=== PATIENT | female | born 1960 | race Caucasian/White ===

== ENCOUNTER 2017-05-16 18:35 | Emergency (ER) | payer OTHER ==
[~2017-05-16] VITALS: Ht 160 cm; Wt 59.0 kg
[~2017-05-16 18:35] MED LIST: ALBUTEROL2.5 MG/3 M IN; CHERATUSSIN OR; KETOROLAC60 MG/2 ML IJ; LORTAB 5/3255 MG PO; LOTRISONE CREAM15 GM EX; MEDDOSEPAK OR; MEDDOSEPAK PO; NAPROSYN500 MG PO; NAPROXEN500 MG PO; NO; PREDNISONE50 MG PO; PROVENTIL HFA IN; SILVADENE1 % EX; SOMA350 MG PO; TRAMADOL HCL50 MG PO; ULTRAM50 MG OR; ZITHROMAX250 MG PO; ZPAK PO
[2017-05-16 21:05] VITALS: BP 109/60
[2017-05-16] MEDS ORDERED: ULTRAM50 M1 PO (21:08)
== END 2017-05-16 21:05 | disposition home or self-care (01) | DRG 605 ==
LOC: ED 18:35
DX: S60.812A Abrasion of left wrist, initial encounter (principal); S20.212A Contusion of left front wall of thorax, initial encounter; F17.210 Nicotine dependence, cigarettes, uncomplicated; W17.89XA Other fall from one level to another, initial encounter

== ENCOUNTER 2018-03-06 15:54 | Emergency (ER) | payer OTHER ==
[~2018-03-06] VITALS: Ht 160 cm; Wt 52.0 kg
[~2018-03-06 15:54] MED LIST changes: +ULTRAM50 M1 PO
[2018-03-06 17:09] VITALS: BP 128/66
== END 2018-03-06 17:10 | disposition home or self-care (01) ==
LOC: ED 15:54
DX: S60.211A Contusion of right wrist, initial encounter (principal); F17.210 Nicotine dependence, cigarettes, uncomplicated; W01.0XXA Fall on same level from slipping, tripping and stumbling without subsequent striking against object, initial encounter; Y92.009 Unspecified place in unspecified non-institutional (private) residence as the place of occurrence of the external cause

== ENCOUNTER 2020-06-23 19:34 | Inpatient (IN) | payer MEDICAID ==
[~2020-06-23] VITALS: Ht 160 cm; Wt 52.0 kg
[2020-06-23 20:28] LABS: HEMATOCRIT 35.4 % (37.0-47.0); HEMOGLOBIN 12.2 g/dl (12.0-16.0); IMMATURE GRANULOCYTES 0.7 % (0.0-5.0); MEAN CELL VOLUME 91.9 fL CALC (80.0-100.0); MEAN CORPUSCULAR HGB 31.7 pG CALC (26.0-32.0); MEAN CORPUSCULAR HGB CONC 34.5 g/dL CAL (32.0-36.0); NEUT# 15.53 thou/uL (2.00-7.15); RED BLOOD COUNT 3.85 mill/uL (4.20-5.60); RED CELL DISTRI WIDTH 11.4 % (11.5-15.5)
[2020-06-23 21:10] LABS: ALBUMIN 3.3 g/dL (3.2-5.0); ALKALINE PHOSPHATASE 72 u/l (38-126); BUN 18 mg/dL (7-17); BUN/CREATININE RATIO 20 (12-20 (CALC)); CARBON DIOXIDE 26 mmol/l (22-30); CHLORIDE 97 mmol/l (95-108); CREATININE 0.9 mg/dL (0.5-1.0); GFR > 60 ML/MIN (>=60 (CALC)); GFR FOR AFR.AMER. > 60 ML/MIN (>=60 (CALC)); POTASSIUM 3.4 mmol/l (3.5-5.1); SGOT/AST 23 u/l (14-36); TOTAL PROTEIN 6.3 g/dL (6.3-8.2)
[2020-06-23 21:12] LABS: ANION GAP 8 (6-22 (CALC)); BILIRUBIN, TOTAL 0.7 mg/dL (0.0-1.4); SODIUM 128 mmol/l (137-146)
[2020-06-23 22:17] LABS: URINE BILIRUBIN - DIPSTICK NEGATIVE (NEGATIVE); URINE BLOOD DIPSTICK LARGE (NEGATIVE); URINE COLOR YELLOW; URINE GLUCOSE - DIPSTICK NEGATIVE (NEGATIVE); URINE KETONE NEGATIVE (NEGATIVE); URINE PROTEIN - DIPSTICK 100 mg/dL (NEG-TRACE); URINE UROBILINOGEN - DIPSTICK 0.2 E.U./dL (0.2)
[2020-06-23 22:19] LABS: URINE LEUK ESTERASE MODERATE (NEGATIVE); URINE NITRITE - DIPSTICK POSITIVE (Negative)
[2020-06-23 22:26] LABS: URINE BACTERIA FEW hpf; URINE SQUAMOUS EPITHELIAL CELL FEW EPI/hpf (0-FEW); URINE WBC 50-100 WBC/hpf (0-5)
[2020-06-24 06:00] VITALS: BP 84/32
[2020-06-24 06:24] LABS: HEMATOCRIT 34.2 % (37.0-47.0); HEMOGLOBIN 11.7 g/dl (12.0-16.0); IMMATURE GRANULOCYTES 1.1 % (0.0-5.0); MEAN CELL VOLUME 93.4 fL CALC (80.0-100.0); MEAN CORPUSCULAR HGB CONC 34.2 g/dL CAL (32.0-36.0); NEUT# 18.37 thou/uL (2.00-7.15); RED BLOOD COUNT 3.66 mill/uL (4.20-5.60); RED CELL DISTRI WIDTH 11.4 % (11.5-15.5)
[2020-06-24 06:35] LABS: ALBUMIN 3.1 g/dL (3.2-5.0); ALKALINE PHOSPHATASE 80 u/l (38-126); ANION GAP 8 (6-22 (CALC)); BILIRUBIN, TOTAL 0.8 mg/dL (0.0-1.4); BUN 17 mg/dL (7-17); BUN/CREATININE RATIO 20 (12-20 (CALC)); CARBON DIOXIDE 25 mmol/l (22-30); CHLORIDE 103 mmol/l (95-108); CREATININE 0.8 mg/dL (0.5-1.0); GFR > 60 ML/MIN (>=60 (CALC)); GFR FOR AFR.AMER. > 60 ML/MIN (>=60 (CALC)); POTASSIUM 3.6 mmol/l (3.5-5.1); SGOT/AST 23 u/l (14-36); SODIUM 133 mmol/l (137-146); TOTAL PROTEIN 5.9 g/dL (6.3-8.2)
[2020-06-24 07:25] VITALS: BP 88/45
[2020-06-24 09:30] VITALS: BP 80/46
[2020-06-24 10:30] VITALS: BP 83/42
[2020-06-24 15:00] VITALS: BP 81/54
[2020-06-24 19:00] VITALS: BP 77/49
[2020-06-25 04:00] VITALS: BP 82/54
[2020-06-25 05:25] LABS: HEMATOCRIT 30.3 % (37.0-47.0); HEMOGLOBIN 10.1 g/dl (12.0-16.0); MEAN CELL VOLUME 94.4 fL CALC (80.0-100.0); MEAN CORPUSCULAR HGB 31.5 pG CALC (26.0-32.0); MEAN CORPUSCULAR HGB CONC 33.3 g/dL CAL (32.0-36.0); RED BLOOD COUNT 3.21 mill/uL (4.20-5.60); RED CELL DISTRI WIDTH 11.8 % (11.5-15.5)
[2020-06-25 05:53] LABS: BUN 14 mg/dL (7-17); BUN/CREATININE RATIO 16 (12-20 (CALC)); CARBON DIOXIDE 22 mmol/l (22-30); CHLORIDE 105 mmol/l (95-108); CREATININE 0.8 mg/dL (0.5-1.0); GFR > 60 ML/MIN (>=60 (CALC)); GFR FOR AFR.AMER. > 60 ML/MIN (>=60 (CALC)); MAGNESIUM 1.8 mg/dL (1.6-2.3); SODIUM 132 mmol/l (137-146)
[2020-06-25 06:25] LABS: ANION GAP 8 (6-22 (CALC)); POTASSIUM 3.4 mmol/l (3.5-5.1)
[2020-06-25 07:30] VITALS: BP 77/51
[2020-06-25 15:05] VITALS: BP 80/44
[2020-06-25 19:00] VITALS: BP 89/55
[2020-06-26 04:00] VITALS: BP 94/58
[2020-06-26 05:48] LABS: HEMATOCRIT 28.4 % (37.0-47.0); HEMOGLOBIN 9.8 g/dl (12.0-16.0); IMMATURE GRANULOCYTES 0.4 % (0.0-5.0); MEAN CELL VOLUME 93.1 fL CALC (80.0-100.0); MEAN CORPUSCULAR HGB 32.1 pG CALC (26.0-32.0); MEAN CORPUSCULAR HGB CONC 34.5 g/dL CAL (32.0-36.0); NEUT# 10.43 thou/uL (2.00-7.15); RED BLOOD COUNT 3.05 mill/uL (4.20-5.60)
[2020-06-26 06:09] LABS: ALBUMIN 2.5 g/dL (3.2-5.0); ALKALINE PHOSPHATASE 82 u/l (38-126); BUN 9 mg/dL (7-17); BUN/CREATININE RATIO 13 (12-20 (CALC)); CARBON DIOXIDE 20 mmol/l (22-30); CHLORIDE 108 mmol/l (95-108); CREATININE 0.7 mg/dL (0.5-1.0); GFR > 60 ML/MIN (>=60 (CALC)); GFR FOR AFR.AMER. > 60 ML/MIN (>=60 (CALC)); SGOT/AST 21 u/l (14-36); SODIUM 134 mmol/l (137-146); TOTAL PROTEIN 4.9 g/dL (6.3-8.2)
[2020-06-26 06:11] LABS: ANION GAP 9 (6-22 (CALC)); POTASSIUM 3.1 mmol/l (3.5-5.1)
[2020-06-26 06:15] LABS: BILIRUBIN, TOTAL 0.4 mg/dL (0.0-1.4)
[2020-06-26 07:35] VITALS: BP 95/63
[2020-06-26 15:55] VITALS: BP 103/54
[2020-06-26 19:00] VITALS: BP 86/51
[2020-06-27 04:00] VITALS: BP 91/58
[2020-06-27 05:47] LABS: HEMOGLOBIN 10.9 g/dl (12.0-16.0); IMMATURE GRANULOCYTES 0.4 % (0.0-5.0); MEAN CELL VOLUME 94.3 fL CALC (80.0-100.0); MEAN CORPUSCULAR HGB 31.1 pG CALC (26.0-32.0); NEUT# 7.8 thou/uL (2.00-7.15); RED BLOOD COUNT 3.5 mill/uL (4.20-5.60); RED CELL DISTRI WIDTH 12.6 % (11.5-15.5)
[2020-06-27 05:58] LABS: ALBUMIN 2.6 g/dL (3.2-5.0); ALKALINE PHOSPHATASE 97 u/l (38-126); ANION GAP 9 (6-22 (CALC)); BILIRUBIN, TOTAL 0.5 mg/dL (0.0-1.4); BUN 5 mg/dL (7-17); BUN/CREATININE RATIO 8 (12-20 (CALC)); CARBON DIOXIDE 24 mmol/l (22-30); CHLORIDE 108 mmol/l (95-108); CREATININE 0.6 mg/dL (0.5-1.0); GFR > 60 ML/MIN (>=60 (CALC)); GFR FOR AFR.AMER. > 60 ML/MIN (>=60 (CALC)); POTASSIUM 3.2 mmol/l (3.5-5.1); SODIUM 138 mmol/l (137-146); TOTAL PROTEIN 5.1 g/dL (6.3-8.2)
[2020-06-27 06:01] LABS: SGOT/AST 37 u/l (14-36)
[2020-06-27 07:57] VITALS: BP 92/53
[2020-06-27 15:10] VITALS: BP 87/56
[2020-06-27 19:00] VITALS: BP 81/34
[2020-06-28 04:00] VITALS: BP 93/55
[2020-06-28 05:33] LABS: HEMATOCRIT 28.1 % (37.0-47.0); HEMOGLOBIN 9.3 g/dl (12.0-16.0); IMMATURE GRANULOCYTES 0.4 % (0.0-5.0); MEAN CELL VOLUME 94.9 fL CALC (80.0-100.0); MEAN CORPUSCULAR HGB 31.4 pG CALC (26.0-32.0); MEAN CORPUSCULAR HGB CONC 33.1 g/dL CAL (32.0-36.0); NEUT# 4.01 thou/uL (2.00-7.15); RED BLOOD COUNT 2.96 mill/uL (4.20-5.60); RED CELL DISTRI WIDTH 12.6 % (11.5-15.5)
[2020-06-28 05:42] LABS: ALBUMIN 2.6 g/dL (3.2-5.0); ALKALINE PHOSPHATASE 89 u/l (38-126); ANION GAP 8 (6-22 (CALC)); BILIRUBIN, TOTAL 0.5 mg/dL (0.0-1.4); BUN 4 mg/dL (7-17); BUN/CREATININE RATIO 7 (12-20 (CALC)); CARBON DIOXIDE 27 mmol/l (22-30); CHLORIDE 106 mmol/l (95-108); CREATININE 0.6 mg/dL (0.5-1.0); GFR > 60 ML/MIN (>=60 (CALC)); GFR FOR AFR.AMER. > 60 ML/MIN (>=60 (CALC)); POTASSIUM 3.4 mmol/l (3.5-5.1); SODIUM 137 mmol/l (137-146)
[2020-06-28 05:47] LABS: SGOT/AST 116 u/l (14-36)
[2020-06-28 08:24] VITALS: BP 95/50
[2020-06-28 15:00] VITALS: BP 81/53
== END 2020-06-28 15:30 | DRG 872 ==
LOC: ED 19:34 → ED-I 20:55 → ED 20:55 → ED-I 06-24 02:43 → ED 06-24 03:39 → MS2 06-24 03:40
PROVIDERS: Emergency Medicine; Nurse Practitioner; ADMIT Internal Medicine; ATTEND Internal Medicine
DX: A41.9 Sepsis, unspecified organism (principal); K81.0 Acute cholecystitis; Z16.11 Resistance to penicillins; N30.90 Cystitis, unspecified without hematuria; B96.20 Unspecified Escherichia coli [E. coli] as the cause of diseases classified elsewhere; R00.8 Other abnormalities of heart beat; J44.9 Chronic obstructive pulmonary disease, unspecified; Z20.822 Contact with and (suspected) exposure to COVID-19; F17.210 Nicotine dependence, cigarettes, uncomplicated; Z98.1 Arthrodesis status
CPT/HCPCS: J1650; Q9967

== ENCOUNTER 2022-04-15 19:46 | Inpatient (IN) | payer MEDICAID ==
[~2022-04-15] VITALS: Ht 160 cm; Wt 42.7 kg
--- NOTE | 2022-04-15 19:46 | NUR ---
PT TO ROOM 13 VIA EMS FOR TRIAGE.
[2022-04-15 20:07] VITALS: BP 101/72
[2022-04-15 20:09] LABS: IMMATURE GRANULOCYTES 0.4 % (0.0-5.0); MEAN CELL VOLUME 97.1 fL CALC (80.0-100.0); MEAN CORPUSCULAR HGB 33.3 pG CALC (26.0-32.0); MEAN CORPUSCULAR HGB CONC 34.3 g/dL CAL (32.0-36.0); NEUT# 10.31 thou/uL (2.00-7.15); RED BLOOD COUNT 4.17 mill/uL (4.20-5.60); RED CELL DISTRI WIDTH 12.3 % (11.5-15.5)
[2022-04-15 20:10] LABS: HEMATOCRIT 40.5 % (37.0-47.0); HEMOGLOBIN 13.9 g/dl (12.0-16.0)
[2022-04-15 20:20] LABS: ALKALINE PHOSPHATASE 70 u/l (38-126); BUN 18 mg/dL (7-17); BUN/CREATININE RATIO 26 (12-20 (CALC)); CARBON DIOXIDE 28 mmol/l (22-30); CHLORIDE 100 mmol/l (95-108); CREATININE 0.7 mg/dL (0.5-1.0); GFR FOR AFR.AMER. > 60 ML/MIN (>=60 (CALC)); GFR OTHER RACES > 60 ML/MIN (>=60 (CALC)); MAGNESIUM 2.1 mg/dL (1.6-2.3); SGOT/AST 29 u/l (14-36); SODIUM 137 mmol/l (137-146)
[2022-04-15 20:22] LABS: ANION GAP 13 (6-22 (CALC)); BILIRUBIN, TOTAL 0.2 mg/dL (0.0-1.4); POTASSIUM 4.1 mmol/l (3.5-5.1)
[2022-04-15 20:32] LABS: MYOGLOBIN 79 ng/mL (0 - 62)
[2022-04-15 21:00] VITALS: BP 128/78
[2022-04-15 22:00] VITALS: BP 102/57
[2022-04-15] MEDS ORDERED: PROAIR HFA IN (22:02)
[2022-04-15] MEDS ORDERED: SYMBICORT 80-4.5MCG (22:02)
[2022-04-15 23:50] VITALS: BP 117/54
[2022-04-16] VITALS (7 sets, daily range): BP systolic 97–120; BP diastolic 51–63
--- NOTE | 2022-04-16 01:00 | NUR ---
PATIENT ADMITTED FROM ER VIA WHEELCHAIR WITH O2 VIA NASAL CANNULA IN PLACE AT 2LPM WITH ER STAFF IN ATTENDANCE. PATIENT IS AWAKE ALERT AND ORIENTEDX3 AND SOB EVEN TALKING. ADMITTED FOR COPD EXACERBATION. PATIENT MIN ASSIST TO THE BED. ALERT AND ORIENTEDX3. O2 AT 2LPM. TELE MONITOR IN PLACE AND READING SR-60-70'S. IV SITE TO LACINTACT AND HEALTHY WITH GOOD BLOOD RETURN. IVF NS HUNG AND INFUSING AT 50CC/HR ORDERED. PATIENT WITH WHEEZING INSPIRATORY AND EXPIRATORY THROUGHOUT. STATES THAT SHE DOES HAVE OCC PRODUCTIVE COUGH WITH YELLOW SPUTUM. ABD IS SOFT WITH ACTIVE BS. LAST BM WAS YESTERDAY. DENIES ANY DIFF WITH URINATION. NO PERIPHERAL EDEMA. PULSES ARE PALPABLE. PATIENT PROVIDED WITH FRUIT AND DRINK. ORIENTED TO ROOM AND SURROUNDINGS. INSTRUCTED ON USE OF NURSE CALL LIGHT SYSTEM AND TV REMOTE. SAFETY PRECAUTIONS REINFORCED. CALL LIGHT IN REACH. WILL CONT TO MONITOR.
--- NOTE | 2022-04-16 03:51 | NUR ---
PATIENT RESTING IN BED IN HIGH FOWLERS POSITION WITH O2 IN PLACE AND EYES CLOSED. RESP ARE LESS LABORED AT THIS TIME. TELE MONITOR IN PLACE. IVF NS PATENT AND INFUSING VIA LAC SITE AT 50CC/HR. CALL LIGHT IN REACH. WILL CONT TO MONITOR.
[2022-04-16 05:37] LABS: HEMATOCRIT 39.2 % (37.0-47.0); HEMOGLOBIN 13.4 g/dl (12.0-16.0); IMMATURE GRANULOCYTES 0.4 % (0.0-5.0); MEAN CELL VOLUME 97.8 fL CALC (80.0-100.0); MEAN CORPUSCULAR HGB 33.4 pG CALC (26.0-32.0); MEAN CORPUSCULAR HGB CONC 34.2 g/dL CAL (32.0-36.0); NEUT# 9.84 thou/uL (2.00-7.15); RED BLOOD COUNT 4.01 mill/uL (4.20-5.60); RED CELL DISTRI WIDTH 12.3 % (11.5-15.5)
[2022-04-16 05:38] LABS: ALBUMIN 3.8 g/dL (3.2-5.0); ALKALINE PHOSPHATASE 71 u/l (38-126); ANION GAP 13 (6-22 (CALC)); BUN 21 mg/dL (7-17); BUN/CREATININE RATIO 37 (12-20 (CALC)); CARBON DIOXIDE 26 mmol/l (22-30); CHLORIDE 101 mmol/l (95-108); CREATININE 0.6 mg/dL (0.5-1.0); GFR FOR AFR.AMER. > 60 ML/MIN (>=60 (CALC)); GFR OTHER RACES > 60 ML/MIN (>=60 (CALC)); MAGNESIUM 2.5 mg/dL (1.6-2.3); POTASSIUM 4.4 mmol/l (3.5-5.1); SGOT/AST 27 u/l (14-36); SODIUM 136 mmol/l (137-146); TOTAL PROTEIN 6.1 g/dL (6.3-8.2)
[2022-04-16 05:45] LABS: BILIRUBIN, TOTAL 0.1 mg/dL (0.0-1.4)
--- NOTE | 2022-04-16 10:19 | NUR ---
pt to m/s from ICU, she is AO, lungs clear, BS active, slight swelling to L lower leg with tenderness, 20 ga IV to RAC, A-fib with BBB
[2022-04-16 15:01] LABS: URINE BILIRUBIN - DIPSTICK NEGATIVE (NEGATIVE); URINE BLOOD DIPSTICK NEGATIVE (NEGATIVE); URINE COLOR YELLOW; URINE GLUCOSE - DIPSTICK NEGATIVE (NEGATIVE); URINE KETONE NEGATIVE (NEGATIVE); URINE LEUK ESTERASE NEGATIVE (NEGATIVE); URINE NITRITE - DIPSTICK NEGATIVE (Negative); URINE PROTEIN - DIPSTICK NEGATIVE (NEG-TRACE); URINE SPECIFIC GRAVITY 1.015; URINE UROBILINOGEN - DIPSTICK 0.2 E.U./dL (0.2)
[2022-04-17] VITALS (7 sets, daily range): BP systolic 100–121; BP diastolic 47–62
--- NOTE | 2022-04-17 04:15 | NUR ---
patient resting in bed. denies any pain or discomfort. no s/s of distress noted.
[2022-04-17 05:41] LABS: HEMATOCRIT 38.9 % (37.0-47.0); HEMOGLOBIN 13.3 g/dl (12.0-16.0); IMMATURE GRANULOCYTES 0.6 % (0.0-5.0); MEAN CELL VOLUME 98.5 fL CALC (80.0-100.0); MEAN CORPUSCULAR HGB 33.7 pG CALC (26.0-32.0); MEAN CORPUSCULAR HGB CONC 34.2 g/dL CAL (32.0-36.0); NEUT# 13.28 thou/uL (2.00-7.15); RED BLOOD COUNT 3.95 mill/uL (4.20-5.60); RED CELL DISTRI WIDTH 12.5 % (11.5-15.5)
[2022-04-17 06:03] LABS: ANION GAP 11 (6-22 (CALC)); BUN 21 mg/dL (7-17); BUN/CREATININE RATIO 36 (12-20 (CALC)); CARBON DIOXIDE 27 mmol/l (22-30); CHLORIDE 103 mmol/l (95-108); CREATININE 0.6 mg/dL (0.5-1.0); GFR FOR AFR.AMER. > 60 ML/MIN (>=60 (CALC)); GFR OTHER RACES > 60 ML/MIN (>=60 (CALC)); MAGNESIUM 2.3 mg/dL (1.6-2.3); POTASSIUM 4.2 mmol/l (3.5-5.1); SODIUM 136 mmol/l (137-146)
--- NOTE | 2022-04-17 07:39 | NUR ---
PT RESTING IN HIGH FOWLERS POSITION. A/OX3 ASSESSMENT AND VS COMPLETED. HEART RHYTHM ON TELE. RESPIRATIONS ON 3L OF OXYGEN BOWEL SOUNDS ACTIVE. PT DENIES WOUNDS . IV SITE NOTED. S.L PT DENIES ADDITIONAL NEEDS ALL SAFETY PRECAUTIONS IN PLACE.
--- NOTE | 2022-04-17 15:11 | NUR ---
PT RESTING IN HIGH FOWLERS POSITION. PT TOLERATED BOTH VACCINESS WELL. PT DENIES ADDITIONAL NEEDS AT THE TIME .
--- NOTE | 2022-04-17 16:08 | NUR ---
PT DENIES ADDITIONAL NEEDS AT THE TIME.
--- NOTE | 2022-04-17 20:30 | NUR ---
PT ALERT, ORIENTED, ABLE TO MAKE NEEDS KNOWN. HR, RRR,PT DENIES PAIN,CHEST PAIN, PRESSURE. LS DIMINISHED WITH EXPIRATORY WHEEZES, PT STATES SOB WITH EXERTION,PT ON 3L O2, NC. ABD SOFT, NONTENDER, BT PRESENT. PT DENIES NAUSEA. PT ABLE TO MOVE ALL EXTREMITIES. BSC PLACED ATBEDSIDE.PT DECLINES TO USE BSC AT THIS TIME. PT STATES, ' I HAVE THREE KIDNEYS, I DO NOT USE THE BATHROOM TOO MUCH. PT DENIES PAIN. PT RESTING IN NO SIGN OF DISCOMFORT, WILL CONTINUE TO MONITOR.
[2022-04-18] VITALS (8 sets, daily range): BP systolic 100–113; BP diastolic 53–67
[2022-04-18 04:55] LABS: HEMATOCRIT 40.8 % (37.0-47.0); HEMOGLOBIN 13.9 g/dl (12.0-16.0); MEAN CELL VOLUME 97.8 fL CALC (80.0-100.0); MEAN CORPUSCULAR HGB 33.3 pG CALC (26.0-32.0); MEAN CORPUSCULAR HGB CONC 34.1 g/dL CAL (32.0-36.0); RED BLOOD COUNT 4.17 mill/uL (4.20-5.60); RED CELL DISTRI WIDTH 12.1 % (11.5-15.5)
[2022-04-18 05:18] LABS: ANION GAP 9 (6-22 (CALC)); BUN 24 mg/dL (7-17); BUN/CREATININE RATIO 47 (12-20 (CALC)); CARBON DIOXIDE 29 mmol/l (22-30); CHLORIDE 100 mmol/l (95-108); CREATININE 0.5 mg/dL (0.5-1.0); GFR FOR AFR.AMER. > 60 ML/MIN (>=60 (CALC)); GFR OTHER RACES > 60 ML/MIN (>=60 (CALC)); MAGNESIUM 2.2 mg/dL (1.6-2.3); POTASSIUM 4.1 mmol/l (3.5-5.1); SODIUM 134 mmol/l (137-146)
--- NOTE | 2022-04-18 07:42 | NUR ---
PT RESTING IN HIGH FOWLERS POSITION. ASSESSMENT COMPLETED. PT ON OXYGEN.HEART RHYTHM ON TELE. PT IV SITE TO LEFT WRIST FORE ARM AREA. 22G. S.L ALL SAFETY PRECAUTIONS IN PLACE WITH CALL LIGHT IN REACH.
--- NOTE | 2022-04-18 12:06 | NUR ---
PT RESTING IN HIGH FOWLERS POSITION. IV DRESSING CHANGED.
--- NOTE | 2022-04-18 15:54 | NUR ---
PT RESTING IN HIGH FOWLERS POSITION DENIES ADDITIONAL NEEDS AT THE TIME.
--- NOTE | 2022-04-18 20:00 | NUR ---
PATIENT IS SITTING UP IN BED WITH O2 VIA NASAL CANNULA IN PLACE. O2 SAT IS 94% AT THIS TIME. ALERT AND ORIENTEDX3. STATES THAT SHE IS NOT FEELING TOO MUCH BETTER. STILL SOB WITH LITTLE OR NO EXHERSION. STILL WITH DIMINISHED BS AND CONT TO WHEEZE. NON-PRODUCTIVE COUGH. INSTRUCTED THAT WE DO NEED SPUTUM SPEC IF SHE IS ABLE TO PROVIDE. SPEC CONTAINER LEFT AT BEDSIDE. STILL RECEIVING NEB TREATMENTS. IV SITE TO LEFT WRIST INTACT. STATES THAT SHE DID HAVE NORMAL BM TODAY. DENIES ANY DIFFICULTY WITH URINATION. NO PERIPHERAL EDEMA NOTED. PULSES ARE PALPABLED. SAFETY PRECAUTIONS REINFORCED. CALL LIGHT IN REACH. WILL CONT TO MONITOR.
[2022-04-19] VITALS (8 sets, daily range): BP systolic 92–124; BP diastolic 50–72
--- NOTE | 2022-04-19 | NUR ---
PATIENT RESTING IN BED WATCHING TV-MEDICATED WITH SOLU-MEDROL ORDERED VIA LEFT WRIST IV SITE. O2 VIA NASAL CANNULA AT 2LPM. CALL LIGHT IN REACH. WILL CONT TO MONITOR.
--- NOTE | 2022-04-19 04:00 | NUR ---
PATIENT RESTING IN BED WITH O2 VIA NASAL CANNULA IN PLACE. EYES ARE CLOSED AND RESP ARE EVEN AND UNLABORED AT THIS TIME. TELE MONITOR IN PLACE AND READING SR-61 AT THIS TIME. CALL LIGHT IN REACH. WILL CONT TO MONITOR.
--- NOTE | 2022-04-19 07:42 | NUR ---
PT RESTING IN HIGH FOWLERS POSITION. A/OX3 ASSESSMENT COMPLETED. HEART RHYTHM ON TELE. RESPIRATIONS UNLABORED ON OXYGEN . PT STATES WHEN MOVING FEELS SOB. FEELS OKAY NOW. IV SITE NOTED. RW AREA S.L PT DENIES ADDITIONAL NEEDS AT THE TIME ALL SAFETY PRECAUTIONS IN PLACE.
--- NOTE | 2022-04-19 12:41 | NUR ---
PT RESTING IN HIGH FOWLERS POSITION DENIES ADDTIIONAL NEEDS AT THE TIME.
--- NOTE | 2022-04-19 16:54 | NUR ---
PT RESTING IN HIGH FOWLERS POSITION. PT DENIES ANY IRRITATION WITH IV. PT DENIES ANY NEED FOR CHANGE. STATES FEELING BETTER.
--- NOTE | 2022-04-19 20:00 | NUR ---
PATIENT SITTING UP IN BED WITH O2 VIA NASAL CANNULA AT 2LPM IN PLACE. O2 SAT IS 96% AT THIS TIME. AWAKE ALERT AND ORIENTEDX3, FAMILY AT BEDSIDE VISITING. PATIENT IS TALKING IN FULL SENTENCES-LESS SOB NOTED. ONLY SLIGHT WHEEZE IN BASES NOTED. TELE MONINITOR IN PLACE-LAST READING WAS SR-80'S. SALINE LOCK TO LEFT WRIST INTACT. SAFETY PRECAUTIONS REINFORCED. CALL LIGHT IN REACH. WILL CONT TO MONITOR.
--- NOTE | 2022-04-20 00:12 | NUR ---
RESTING IN BED WITH O2 VIA NASAL CANNULA IN PLACE. EYES ARE CLOSED AND RESPS ARE EVEN AND UNLABORED. TELE MONITOR IN PLACE. CALL LIGHT IN REACH. WILL CONT TO MONITOR.
--- NOTE | 2022-04-20 04:19 | NUR ---
PATIENT RESTING IN BED WITH EYES CLOSED. RESPS ARE EVEN AND UNLABORED WITH O2 VIA NASAL CANNULA IN PLACE. TELE MONITOR IN PLACE WITH LAST READIN SR-60'S. CALL LIGHT IN REACH. WILL CONT TO MONITOR.
[2022-04-20 04:54] VITALS: BP 116/57
[2022-04-20 06:41] VITALS: BP 116/57
--- NOTE | 2022-04-20 07:45 | NUR ---
BEDSIDE REPORT GIVEN, PT AWAKE ALERT AND ORIENTED, NO C/O DISCOMFORT AT THIS TIME, STATES SHE FEELS BETTER TODAY, O2 @ 2L VIA NC IN PLACE, TELE MONITOR IN PLACE, CALL FRANKS IN REACH AND BED LOCKED IN LOWEST POSITION.
--- NOTE | 2022-04-20 12:43 | NUR ---
RELAXING IN RECLINER AFTER HAVING MEAL, NO NEW COMPLAINS.
[2022-04-20 15:05] VITALS: BP 91/52
[2022-04-20 19:06] VITALS: BP 118/59
--- NOTE | 2022-04-20 20:00 | NUR ---
RECEIVED REPORT FROM NURSE DARLINE, PATIENT SITTING IN BED, FAMILY IN ROOM, PATIENT ON 3LPM O2 VIA NC, EXERTIONAL DYSPNEA NOTED, PURSE LIP BREATHING, HAS G 20 ON LT WRIST PATENT FLUSHES WELL, HOOKED ON TELEMETRY, ACTIVE BOWEL SOUNDS, LBM 04/20, DENIES PAIN AT THIS TIME, CALL LIGHT IN REACH.
[2022-04-21 00:03] VITALS: BP 123/69
--- NOTE | 2022-04-21 00:52 | NUR ---
PATIENT RESTING IN BED, EYES CLOSED, REMAINS ON O2 @ 3LPM VIA BC, CALL LIGHT IN REACH.
[2022-04-21 04:04] VITALS: BP 120/52
--- NOTE | 2022-04-21 04:30 | NUR ---
PATIENT SITTING IN BED,AWAKE, WATCHING TV, NOT IN DISTRESS, TELE BATERRY REPLACE, DENIES DISCMORTS AT THIS TIME, CALL LIGHT IN REACH.
[2022-04-21 06:21] VITALS: BP 124/70
--- NOTE | 2022-04-21 07:02 | NUR ---
BEDSIDE REPORT FROM LINDY BLOCK. PT A&OX4. NO APPARENT DISTRESS NOTED, RESPIRATIONS EVEN AND UNLABORED. 02 @ 3L/M VIA NC. PT DENIES ANY CURRENT WANTS OR NEEDS. DISCUSSED POC AND SAFETY PRECAUTIONS. PT VERBALIZED UNDERSTANDING. CALL LIGHT WITHIN REACH. WILL CONTINUE TO MONITOR.
--- NOTE | 2022-04-21 10:22 | NUR ---
DR. JUNG AT BEDSIDE.
[2022-04-21] MEDS ORDERED: PREDNISONE10 MG PO (10:26)
[2022-04-21 10:31] VITALS: BP 111/59
--- NOTE | 2022-04-21 10:53 | NUR ---
PT REMOVED OFF O2 PER DR. JUNG VERBAL ORDERS. AT REST O2 SAT DROPPED FROM 96% ON 3L/M VIA NC TO 92% ON RA AT REST. WHILE AMBULATING DOWN JAMA WITH WALKER PT SAT DROPPED TO 88% ON RA AND PT BECAME EXTREMELY SOB. PT ESCORTED BACK TO ROOM SAFELY, O2 REAPPLIED 2L/M VIA NC, PT RECOVERED QUICKLY TO 92%. CALL LIGHT WITHIN REACH. WILL CONTINUE TO MONITOR.
--- NOTE | 2022-04-21 12:22 | NUR ---
IV site discontinued, cath intact. No edema , no redness, voices no discomfort.
--- NOTE | 2022-04-21 12:31 | NUR ---
Discharge instructions given. Patient verbalizes understanding of same. Discharged in stable condition via Wheelchair to Home with spouse. All belongings sent with pt.
== END 2022-04-21 12:31 | disposition home or self-care (01) | DRG 190 ==
LOC: ED 19:46 → ED-I 19:59 → ED 19:59 → ED-I 20:59 → ED 21:08 → MS2 21:09
PROVIDERS: Family Medicine; Nurse Practitioner; ADMIT Internal Medicine; ATTEND Internal Medicine
PROC: 3E0234Z Introduction of Serum, Toxoid and Vaccine into Muscle, Percutaneous Approach (ICD-10-PCS; principal; 2022-04-17)
PROC: 3E02340 Introduction of Influenza Vaccine into Muscle, Percutaneous Approach (ICD-10-PCS; 2022-04-17)
DX: J43.9 Emphysema, unspecified (principal); J96.01 Acute respiratory failure with hypoxia; E83.42 Hypomagnesemia; F06.4 Anxiety disorder due to known physiological condition; F17.210 Nicotine dependence, cigarettes, uncomplicated; Z23 Encounter for immunization; Z20.822 Contact with and (suspected) exposure to COVID-19
CPT/HCPCS: J1650; J3475; Q9967

== ENCOUNTER 2023-02-17 19:55 | Inpatient (IN) | payer MEDICAID ==
[2023-02-17] VITALS (35 sets, daily range): BP systolic 76–146; BP diastolic 43–110
[~2023-02-17] VITALS: Ht 160 cm; Wt 42.0 kg
[~2023-02-17 19:55] MED LIST changes: +PREDNISONE10 MG PO; +PROAIR HFA IN; +SYMBICORT 80-4.5MCG
[2023-02-17 20:59] LABS: BASO% 0.1 % (0-3); EOS% 0.9 % (0-8); HEMATOCRIT 36.3 % (37.0-47.0); HEMOGLOBIN 12.5 g/dl (12.0-16.0); IMMATURE GRANULOCYTES 0.6 % (0.0-5.0); LYMPH% 9.9 % (15-41); MEAN CELL VOLUME 93.6 fL CALC (80.0-100.0); MEAN CORPUSCULAR HGB 32.2 pG CALC (26.0-32.0); MEAN CORPUSCULAR HGB CONC 34.4 g/dL CAL (32.0-36.0); MONO% 8.1 % (2-13); NEUT# 8.72 thou/uL (2.00-7.15); NEUT% 80.4 % (42-76); RED BLOOD COUNT 3.88 mill/uL (4.20-5.60); RED CELL DISTRI WIDTH 12.9 % (11.5-15.5)
[2023-02-17 21:11] LABS: ALBUMIN 4.1 g/dL (3.2-5.0); ALKALINE PHOSPHATASE 82 u/l (38-126); ANION GAP 8 (6-22 (CALC)); BUN 10 mg/dL (8-23); BUN/CREATININE RATIO 23 (12-20 (CALC)); CARBON DIOXIDE 26 mmol/l (22-30); CHLORIDE 100 mmol/l (95-108); CREATININE 0.4 mg/dL (0.5-1.0); GFR FOR AFR.AMER. > 60 ML/MIN (>=60 (CALC)); GFR OTHER RACES > 60 ML/MIN (>=60 (CALC)); POTASSIUM 3.7 mmol/l (3.5-5.1); SGOT/AST 31 u/l (9-36); SODIUM 130 mmol/l (137-146); TOTAL PROTEIN 7.2 g/dL (6.3-8.2)
[2023-02-17 21:15] LABS: BILIRUBIN, TOTAL 0.5 mg/dL (0.02-1.3)
[2023-02-18] VITALS (25 sets, daily range): BP systolic 82–106; BP diastolic 42–64
[2023-02-18 08:50] LABS: HEMATOCRIT 34.9 % (37.0-47.0); HEMOGLOBIN 12.1 g/dl (12.0-16.0); IMMATURE GRANULOCYTES 0.2 % (0.0-5.0); LYMPH% 6.6 % (15-41); MEAN CELL VOLUME 94.6 fL CALC (80.0-100.0); MEAN CORPUSCULAR HGB 32.8 pG CALC (26.0-32.0); MEAN CORPUSCULAR HGB CONC 34.7 g/dL CAL (32.0-36.0); MONO% 2.3 % (2-13); NEUT# 5.22 thou/uL (2.00-7.15); NEUT% 90.9 % (42-76); RED BLOOD COUNT 3.69 mill/uL (4.20-5.60); RED CELL DISTRI WIDTH 12.8 % (11.5-15.5)
[2023-02-18 09:09] LABS: ALBUMIN 3.3 g/dL (3.2-5.0); ALKALINE PHOSPHATASE 76 u/l (38-126); ANION GAP 10 (6-22 (CALC)); BUN 18 mg/dL (8-23); BUN/CREATININE RATIO 40 (12-20 (CALC)); CARBON DIOXIDE 22 mmol/l (22-30); CHLORIDE 104 mmol/l (95-108); CREATININE 0.4 mg/dL (0.5-1.0); GFR FOR AFR.AMER. > 60 ML/MIN (>=60 (CALC)); GFR OTHER RACES > 60 ML/MIN (>=60 (CALC)); MAGNESIUM 2.1 mg/dL (1.6-2.3); POTASSIUM 3.9 mmol/l (3.5-5.1); SGOT/AST 27 u/l (9-36); SODIUM 132 mmol/l (137-146); TOTAL PROTEIN 6.1 g/dL (6.3-8.2)
[2023-02-18 09:18] LABS: BILIRUBIN, TOTAL 0.2 mg/dL (0.02-1.3)
[2023-02-18] MEDS ORDERED: SYMBICORT1 AE1 PO (09:44)
[2023-02-19 00:37] VITALS: BP 100/65
[2023-02-19 05:07] VITALS: BP 92/52
[2023-02-19 05:18] LABS: BASO% 0.1 % (0-3); HEMATOCRIT 34.4 % (37.0-47.0); HEMOGLOBIN 11.4 g/dl (12.0-16.0); IMMATURE GRANULOCYTES 0.9 % (0.0-5.0); LYMPH% 5.4 % (15-41); MEAN CELL VOLUME 96.9 fL CALC (80.0-100.0); MEAN CORPUSCULAR HGB 32.1 pG CALC (26.0-32.0); MEAN CORPUSCULAR HGB CONC 33.1 g/dL CAL (32.0-36.0); MONO% 2.7 % (2-13); NEUT# 9.71 thou/uL (2.00-7.15); NEUT% 90.9 % (42-76); RED BLOOD COUNT 3.55 mill/uL (4.20-5.60)
[2023-02-19 05:40] LABS: ALBUMIN 3.4 g/dL (3.2-5.0); ALKALINE PHOSPHATASE 75 u/l (38-126); ANION GAP 8 (6-22 (CALC)); BILIRUBIN, TOTAL 0.2 mg/dL (0.02-1.3); BUN 11 mg/dL (8-23); BUN/CREATININE RATIO 24 (12-20 (CALC)); CARBON DIOXIDE 25 mmol/l (22-30); CHLORIDE 107 mmol/l (95-108); CREATININE 0.4 mg/dL (0.5-1.0); GFR FOR AFR.AMER. > 60 ML/MIN (>=60 (CALC)); GFR OTHER RACES > 60 ML/MIN (>=60 (CALC)); MAGNESIUM 2.1 mg/dL (1.6-2.3); POTASSIUM 3.9 mmol/l (3.5-5.1); SGOT/AST 40 u/l (9-36); SODIUM 136 mmol/l (137-146); TOTAL PROTEIN 6.4 g/dL (6.3-8.2)
[2023-02-19 06:40] VITALS: BP 96/45
[2023-02-19 10:35] VITALS: BP 115/58
[2023-02-19 14:45] VITALS: BP 97/45
[2023-02-19 19:50] VITALS: BP 106/41
[2023-02-20 00:19] VITALS: BP 101/50
[2023-02-20 04:30] VITALS: BP 108/60
[2023-02-20 05:20] LABS: BASO% 0.1 % (0-3); HEMATOCRIT 33.5 % (37.0-47.0); HEMOGLOBIN 11.3 g/dl (12.0-16.0); IMMATURE GRANULOCYTES 0.3 % (0.0-5.0); LYMPH% 5.2 % (15-41); MEAN CELL VOLUME 98.5 fL CALC (80.0-100.0); MEAN CORPUSCULAR HGB 33.2 pG CALC (26.0-32.0); MEAN CORPUSCULAR HGB CONC 33.7 g/dL CAL (32.0-36.0); MONO% 2.3 % (2-13); NEUT# 10.2 thou/uL (2.00-7.15); NEUT% 92.1 % (42-76); RED BLOOD COUNT 3.4 mill/uL (4.20-5.60); RED CELL DISTRI WIDTH 13.2 % (11.5-15.5)
[2023-02-20 05:38] LABS: ALKALINE PHOSPHATASE 65 u/l (38-126); ANION GAP 7 (6-22 (CALC)); BILIRUBIN, TOTAL 0.2 mg/dL (0.02-1.3); BUN 16 mg/dL (8-23); BUN/CREATININE RATIO 32 (12-20 (CALC)); CARBON DIOXIDE 27 mmol/l (22-30); CHLORIDE 107 mmol/l (95-108); CREATININE 0.5 mg/dL (0.5-1.0); GFR FOR AFR.AMER. > 60 ML/MIN (>=60 (CALC)); GFR OTHER RACES > 60 ML/MIN (>=60 (CALC)); MAGNESIUM 2.1 mg/dL (1.6-2.3); POTASSIUM 4.5 mmol/l (3.5-5.1); SGOT/AST 31 u/l (9-36); SODIUM 137 mmol/l (137-146); TOTAL PROTEIN 5.6 g/dL (6.3-8.2)
[2023-02-20 10:28] VITALS: BP 111/60
[2023-02-20 19:52] VITALS: BP 128/54
[2023-02-21 00:08] VITALS: BP 118/61
[2023-02-21 04:11] VITALS: BP 117/55
[2023-02-21 06:38] LABS: HEMATOCRIT 34.9 % (37.0-47.0); HEMOGLOBIN 11.9 g/dl (12.0-16.0); MEAN CELL VOLUME 96.7 fL CALC (80.0-100.0); MEAN CORPUSCULAR HGB CONC 34.1 g/dL CAL (32.0-36.0); RED BLOOD COUNT 3.61 mill/uL (4.20-5.60)
[2023-02-21 06:52] LABS: ALKALINE PHOSPHATASE 65 u/l (38-126); ANION GAP 5 (6-22 (CALC)); BILIRUBIN, TOTAL 0.2 mg/dL (0.02-1.3); BUN 14 mg/dL (8-23); BUN/CREATININE RATIO 25 (12-20 (CALC)); CARBON DIOXIDE 32 mmol/l (22-30); CHLORIDE 101 mmol/l (95-108); CREATININE 0.6 mg/dL (0.5-1.0); GFR FOR AFR.AMER. > 60 ML/MIN (>=60 (CALC)); GFR OTHER RACES > 60 ML/MIN (>=60 (CALC)); MAGNESIUM 2.1 mg/dL (1.6-2.3); POTASSIUM 3.9 mmol/l (3.5-5.1); SGOT/AST 30 u/l (9-36); SODIUM 135 mmol/l (137-146); TOTAL PROTEIN 5.6 g/dL (6.3-8.2)
[2023-02-21 07:24] VITALS: BP 135/63
[2023-02-21 10:30] VITALS: BP 140/56
[2023-02-21 15:25] VITALS: BP 107/56
[2023-02-21 19:20] VITALS: BP 122/67
[2023-02-22 00:13] VITALS: BP 129/51
[2023-02-22 04:25] VITALS: BP 111/46
[2023-02-22 06:18] LABS: BASO% 0.1 % (0-3); HEMATOCRIT 36.8 % (37.0-47.0); HEMOGLOBIN 12.3 g/dl (12.0-16.0); IMMATURE GRANULOCYTES 0.6 % (0.0-5.0); LYMPH% 5.7 % (15-41); MEAN CELL VOLUME 96.3 fL CALC (80.0-100.0); MEAN CORPUSCULAR HGB 32.2 pG CALC (26.0-32.0); MEAN CORPUSCULAR HGB CONC 33.4 g/dL CAL (32.0-36.0); MONO% 2.5 % (2-13); NEUT# 9.24 thou/uL (2.00-7.15); NEUT% 91.1 % (42-76); RED BLOOD COUNT 3.82 mill/uL (4.20-5.60); RED CELL DISTRI WIDTH 12.8 % (11.5-15.5)
[2023-02-22 06:22] LABS: ALBUMIN 3.1 g/dL (3.2-5.0); ALKALINE PHOSPHATASE 63 u/l (38-126); ANION GAP 7 (6-22 (CALC)); BILIRUBIN, TOTAL 0.2 mg/dL (0.02-1.3); BUN 15 mg/dL (8-23); BUN/CREATININE RATIO 31 (12-20 (CALC)); CARBON DIOXIDE 31 mmol/l (22-30); CHLORIDE 102 mmol/l (95-108); CREATININE 0.5 mg/dL (0.5-1.0); GFR FOR AFR.AMER. > 60 ML/MIN (>=60 (CALC)); GFR OTHER RACES > 60 ML/MIN (>=60 (CALC)); MAGNESIUM 2.1 mg/dL (1.6-2.3); POTASSIUM 3.6 mmol/l (3.5-5.1); SGOT/AST 28 u/l (9-36); SODIUM 136 mmol/l (137-146); TOTAL PROTEIN 5.7 g/dL (6.3-8.2)
[2023-02-22 06:25] VITALS: BP 121/66
[2023-02-22 10:54] VITALS: BP 133/61
[2023-02-22 15:00] VITALS: BP 105/67
[2023-02-22 20:20] VITALS: BP 96/57
[2023-02-23] VITALS (9 sets, daily range): BP systolic 99–169; BP diastolic 49–86
[2023-02-23 05:23] LABS: HEMATOCRIT 37.6 % (37.0-47.0); HEMOGLOBIN 12.6 g/dl (12.0-16.0); IMMATURE GRANULOCYTES 0.6 % (0.0-5.0); LYMPH% 10.5 % (15-41); MEAN CELL VOLUME 95.7 fL CALC (80.0-100.0); MEAN CORPUSCULAR HGB 32.1 pG CALC (26.0-32.0); MEAN CORPUSCULAR HGB CONC 33.5 g/dL CAL (32.0-36.0); MONO% 5.2 % (2-13); NEUT# 10.35 thou/uL (2.00-7.15); NEUT% 83.7 % (42-76); RED BLOOD COUNT 3.93 mill/uL (4.20-5.60); RED CELL DISTRI WIDTH 12.7 % (11.5-15.5)
[2023-02-23 05:52] LABS: ALBUMIN 3.1 g/dL (3.2-5.0); ALKALINE PHOSPHATASE 60 u/l (38-126); ANION GAP 5 (6-22 (CALC)); BILIRUBIN, TOTAL 0.2 mg/dL (0.02-1.3); BUN 16 mg/dL (8-23); BUN/CREATININE RATIO 35 (12-20 (CALC)); CARBON DIOXIDE 34 mmol/l (22-30); CHLORIDE 100 mmol/l (95-108); CREATININE 0.5 mg/dL (0.5-1.0); GFR FOR AFR.AMER. > 60 ML/MIN (>=60 (CALC)); GFR OTHER RACES > 60 ML/MIN (>=60 (CALC)); MAGNESIUM 2.1 mg/dL (1.6-2.3); POTASSIUM 3.4 mmol/l (3.5-5.1); SGOT/AST 28 u/l (9-36); SODIUM 136 mmol/l (137-146); TOTAL PROTEIN 5.9 g/dL (6.3-8.2)
[2023-02-24 04:53] VITALS: BP 116/66
[2023-02-24 05:36] LABS: BASO% 0.1 % (0-3); EOS% 0.1 % (0-8); HEMATOCRIT 41.3 % (37.0-47.0); HEMOGLOBIN 13.9 g/dl (12.0-16.0); IMMATURE GRANULOCYTES 1.1 % (0.0-5.0); LYMPH% 12.4 % (15-41); MEAN CELL VOLUME 95.6 fL CALC (80.0-100.0); MEAN CORPUSCULAR HGB 32.2 pG CALC (26.0-32.0); MEAN CORPUSCULAR HGB CONC 33.7 g/dL CAL (32.0-36.0); MONO% 4.6 % (2-13); NEUT# 9.98 thou/uL (2.00-7.15); NEUT% 81.7 % (42-76); RED BLOOD COUNT 4.32 mill/uL (4.20-5.60); RED CELL DISTRI WIDTH 12.7 % (11.5-15.5)
[2023-02-24 05:53] LABS: ALBUMIN 3.4 g/dL (3.2-5.0); ALKALINE PHOSPHATASE 67 u/l (38-126); ANION GAP 7 (6-22 (CALC)); BUN 15 mg/dL (8-23); BUN/CREATININE RATIO 32 (12-20 (CALC)); CARBON DIOXIDE 32 mmol/l (22-30); CHLORIDE 99 mmol/l (95-108); CREATININE 0.5 mg/dL (0.5-1.0); GFR FOR AFR.AMER. > 60 ML/MIN (>=60 (CALC)); GFR OTHER RACES > 60 ML/MIN (>=60 (CALC)); MAGNESIUM 2.2 mg/dL (1.6-2.3); POTASSIUM 3.9 mmol/l (3.5-5.1); SGOT/AST 28 u/l (9-36); SODIUM 134 mmol/l (137-146); TOTAL PROTEIN 6.5 g/dL (6.3-8.2)
[2023-02-24 06:06] LABS: BILIRUBIN, TOTAL 0.3 mg/dL (0.02-1.3)
[2023-02-24 08:12] VITALS: BP 122/61
[2023-02-24 11:49] VITALS: BP 105/52
[2023-02-24 16:03] VITALS: BP 101/59
[2023-02-24 19:53] VITALS: BP 98/54
[2023-02-25] VITALS (7 sets, daily range): BP systolic 101–119; BP diastolic 52–77
[2023-02-25 05:53] LABS: BASO% 0.1 % (0-3); EOS% 0.1 % (0-8); HEMATOCRIT 40.9 % (37.0-47.0); HEMOGLOBIN 13.9 g/dl (12.0-16.0); IMMATURE GRANULOCYTES 0.9 % (0.0-5.0); LYMPH% 12.3 % (15-41); MEAN CELL VOLUME 95.8 fL CALC (80.0-100.0); MEAN CORPUSCULAR HGB 32.6 pG CALC (26.0-32.0); MONO% 5.4 % (2-13); NEUT# 11.03 thou/uL (2.00-7.15); NEUT% 81.2 % (42-76); RED BLOOD COUNT 4.27 mill/uL (4.20-5.60); RED CELL DISTRI WIDTH 12.8 % (11.5-15.5)
[2023-02-25 06:16] LABS: ALBUMIN 3.3 g/dL (3.2-5.0); ALKALINE PHOSPHATASE 64 u/l (38-126); ANION GAP 8 (6-22 (CALC)); BILIRUBIN, TOTAL 0.2 mg/dL (0.02-1.3); BUN 21 mg/dL (8-23); BUN/CREATININE RATIO 45 (12-20 (CALC)); CARBON DIOXIDE 33 mmol/l (22-30); CHLORIDE 97 mmol/l (95-108); CREATININE 0.5 mg/dL (0.5-1.0); GFR FOR AFR.AMER. > 60 ML/MIN (>=60 (CALC)); GFR OTHER RACES > 60 ML/MIN (>=60 (CALC)); MAGNESIUM 2.2 mg/dL (1.6-2.3); POTASSIUM 3.6 mmol/l (3.5-5.1); SGOT/AST 24 u/l (9-36); SODIUM 133 mmol/l (137-146); TOTAL PROTEIN 6.1 g/dL (6.3-8.2)
[2023-02-25] MEDS ORDERED: PREDNISONE10 MG PO (13:30)
== END 2023-02-25 15:37 | disposition home or self-care (01) | DRG 191 ==
LOC: ED 19:55 → ED-I 23:35 → ED 02-18 00:04 → MS2 02-18 00:05
PROVIDERS: Internal Medicine; Nurse Practitioner Family; ADMIT Student in an Organized Health Care Education/Training Program; ATTEND Student in an Organized Health Care Education/Training Program
DX: J44.1 Chronic obstructive pulmonary disease with (acute) exacerbation (principal); J96.11 Chronic respiratory failure with hypoxia; J00 Acute nasopharyngitis [common cold]; F41.9 Anxiety disorder, unspecified; F17.210 Nicotine dependence, cigarettes, uncomplicated; T41.5X6A Underdosing of therapeutic gases, initial encounter; Z91.120 Patient's intentional underdosing of medication regimen due to financial hardship; Z99.81 Dependence on supplemental oxygen; Z20.822 Contact with and (suspected) exposure to COVID-19
CPT/HCPCS: J0692; J1650; J3475

== ENCOUNTER 2024-01-20 12:32 | Inpatient (IN) | payer OTHER ==
[2024-01-20] VITALS (13 sets, daily range): BP systolic 89–120; BP diastolic 48–82
[~2024-01-20] VITALS: Ht 160 cm; Wt 42.0 kg
[~2024-01-20 12:32] MED LIST changes: +ALBUTEROL SULFA0.51 NEB; +AMOX/K CLAV875 M1 PO; +DILTIAZEM30 MG PO; +DOXYCYCLINE100 MG PO; +ELIQUIS5 MG PO; +PANTOPRAZOLE SO40 M1 PO; +PREDNISONE20 MG PO; +PROVENTIL HFA108 MCG IN; +SYMBICORT1 AE1 IN; +SYMBICORT1 AE1 PO; +XANAX0.5 MG PO
[2024-01-20] MEDS ORDERED: methylPREDNISolone SODIUM SUCC 125 MG/2 ML SDV IV ONE (13:00)
[2024-01-20] MEDS ORDERED: IPRATROPIUM-Albuterol 0.5MG-2.5MG/3 ML NEB ONE (13:00)
--- NOTE | 2024-01-20 13:07 | NUR ---
PT MEDICATED ORDERED. NO APPARENT DISTRESS NOTED. 02 @ 3L/M VIA NC.
[2024-01-20 13:16] LABS: BASO% 0.2 % (0-3); EOS% 1.3 % (0-8); HEMATOCRIT 39.2 % (37.0-47.0); HEMOGLOBIN 13.4 g/dl (12.0-16.0); IMMATURE GRANULOCYTES 0.1 % (0.0-5.0); LYMPH% 21.7 % (15-41); MEAN CELL VOLUME 96.8 fL CALC (80.0-100.0); MEAN CORPUSCULAR HGB 33.1 pG CALC (26.0-32.0); MEAN CORPUSCULAR HGB CONC 34.2 g/dL CAL (32.0-36.0); MONO% 8.8 % (2-13); NEUT# 6.38 thou/uL (2.00-7.15); NEUT% 67.9 % (42-76); RED BLOOD COUNT 4.05 mill/uL (4.20-5.60); RED CELL DISTRI WIDTH 12.5 % (11.5-15.5)
[2024-01-20 13:25] LABS: ALKALINE PHOSPHATASE 64 u/l (38-126); ANION GAP 7 (6-22 (CALC)); BUN 14 mg/dL (8-23); BUN/CREATININE RATIO 16 (12-20 (CALC)); CARBON DIOXIDE 32 mmol/l (22-30); CHLORIDE 102 mmol/l (95-108); CREATININE 0.9 mg/dL (0.5-1.0); ESTIMATED GFR 72 ML/MIN (>=90 (CALC)); POTASSIUM 3.6 mmol/l (3.5-5.1); SGOT/AST 25 u/l (9-36); SODIUM 138 mmol/l (137-146)
[2024-01-20 13:26] LABS: ALBUMIN 4.3 g/dL (3.2-5.0); BILIRUBIN, TOTAL 0.4 mg/dL (0.02-1.3); TOTAL PROTEIN 7.1 g/dL (6.3-8.2)
[2024-01-20] MEDS ORDERED: AZITHROMYCIN 500 MG in SODIUM CHLORIDE 0.9% 250 ML IV ONE (14:30)
--- NOTE | 2024-01-20 14:38 | NUR ---
PT RESTING IN ROOM. HOB REMAINS ELEVATED. RESPIRATIONS EVEN AND UNLABORED. PT VERBALIZED LITTLE RELIEF OF SOB WITH PRIOR MEDICATIONS. NO APPARENT DISTRESS NOTED. IV ABT INITIATED.
[2024-01-20] MEDS ORDERED: MAGNESIUM HYDROXIDE 30 ML UDC PO PRN (14:40)
[2024-01-20] MEDS ORDERED: ACETAMINOPHEN 325 MG/TAB PO PRN (14:40)
[2024-01-20] MEDS ORDERED: IPRATROPIUM-Albuterol 0.5MG-2.5MG/3 ML NEB SCH (15:00)
--- NOTE | 2024-01-20 15:41 | NUR ---
PENDING ROOM ASSIGNMENT, INFORMED PT AT THIS TIME. PT VERBALIZED UNDERSTANDING. NO APPARENT DISTRESS NOTED.
[2024-01-20] MEDS ORDERED: ALPRAZolam 0.5 MG/TAB PO PRN (17:05)
[2024-01-20] MEDS ORDERED: CLARIFY DOSE PO PRN (17:10)
--- NOTE | 2024-01-20 17:14 | NUR ---
REPORT CALLED AND GIVEN TO WILLOW ROBERTS ON [employer]. PT TO GO TO ER ROOM 264
--- NOTE | 2024-01-20 17:24 | NUR ---
PT ARRIVED TO THE UNIT VIA STRETCHER, PT IS A&O X3, PUPILS PERRL, HR NORMAL S1 S2, LUNG SOUNDS DIMINISHED WITH WHEEZES, STRONG RADIAL AND PEDAL PULSES, ABD SOFT WITH ACTIVE BOWEL SOUNDS, 20G LAC IV SL, PT ORIENTED TO THE ROOM AND CALL LIGHT SYSTEM, SAFETY MEASURES IN PLACE, CALL FRANKS WITHIN REACH
--- NOTE | 2024-01-20 17:31 | NUR ---
PT TRANSFERED TO [facility] IN STABLE CONDITION.
--- NOTE | 2024-01-20 17:38 | NUR ---
PTS ADMISSION INFO. WEIGHT 40KG. HEIGHT 5'3. TEMP 97.6. RESPIRATIONS-16
--- NOTE | 2024-01-20 18:00 | NUR ---
SETUP ASSISTANCE PROVIDED WITH DINNER TRAY
--- NOTE | 2024-01-20 19:00 | NUR ---
SHIFT CHANGE REPORT RECEIVED PT RESTING NO DISTRESS NOTED ON EXAM. IV SITE FLUSHED WORKING PROPERLY SL. CALL LIGHT WITHIN REACH. PLAN OF CARE ONGOING.
[2024-01-20] MEDS ORDERED: ENOXAPARIN SODIUM 40 MG/0.4 ML SYR SC SCH (21:00)
--- NOTE | 2024-01-20 21:00 | NUR ---
PT RESTING ASKING FOR HER XANAX STATING STATING SHE FEEL SLIGHTLY ANXIOUS. ASSESSMENT DONE. IV FLUSHED ABX GIVEN. PT REPORTS NO PAIN AT THIS TIME. VS WNL ON NC 3L WHICH IS HER HOME USE LUNGS SOUNDS WHEEZING. NO NEEDS AT THIS TIME. CALL LIGHT WITHIN REACH. PLAN OF CARE ONGOING.
[2024-01-20] MEDS ORDERED: methylPREDNISolone Sod Succ 40 MG/ML SDV IV SCH (22:00)
[2024-01-21] VITALS (7 sets, daily range): BP systolic 93–101; BP diastolic 39–55
--- NOTE | 2024-01-21 | NUR ---
PT SLEEPING NO DISTRESS NOTED ON EXAM. PT EASILY AROUSABLE LUNGS SOUND DIMINISHED NOW AFTER BREATHING TX EARLIER. NO PAIN REPORTED. CALL LIGHT WITHIN REACH. PLAN OF CARE ONGOING.
--- NOTE | 2024-01-21 04:00 | NUR ---
PT RESTING NO DISTRESS NOTED. PT REPORTS NOT NEEDING ANYTHING NO PAIN. CALL LIGHT WITHIN REACH. PLAN OF CARE ONGOING.
[2024-01-21 06:22] LABS: BASO% 0.1 % (0-3); HEMATOCRIT 35.1 % (37.0-47.0); HEMOGLOBIN 12.1 g/dl (12.0-16.0); IMMATURE GRANULOCYTES 0.3 % (0.0-5.0); LYMPH% 7.8 % (15-41); MEAN CELL VOLUME 96.4 fL CALC (80.0-100.0); MEAN CORPUSCULAR HGB 33.2 pG CALC (26.0-32.0); MEAN CORPUSCULAR HGB CONC 34.5 g/dL CAL (32.0-36.0); NEUT# 6.28 thou/uL (2.00-7.15); NEUT% 88.8 % (42-76); RED BLOOD COUNT 3.64 mill/uL (4.20-5.60); RED CELL DISTRI WIDTH 12.5 % (11.5-15.5)
[2024-01-21 06:38] LABS: CREATININE 0.4 mg/dL (0.5-1.0); MAGNESIUM 1.9 mg/dL (1.6-2.3); POTASSIUM 3.7 mmol/l (3.5-5.1)
[2024-01-21 06:40] LABS: ALBUMIN 3.3 g/dL (3.2-5.0); BILIRUBIN, TOTAL 0.2 mg/dL (0.02-1.3); TOTAL PROTEIN 5.5 g/dL (6.3-8.2)
--- NOTE | 2024-01-21 07:05 | NUR ---
PT SITTING UP IN THE BED WATCHING TV, PT IS A&O X3, PUPILS PERRL, LUNG SOUNDS DIMINISHED, 3L O2 VIA NC, HR NORMAL S1 & S2, ABD SOFT WITH ACTIVE BOWEL SOUND, STRONG RADIAL AND PEDAL PULSES, 20G LAC IV SL, SAFETY MEASURES REINFORCED, CALL FRANKS WITHIN REACH
--- NOTE | 2024-01-21 11:50 | NUR ---
SETUP ASSISTANCE PROVIDED WITH LUNCH TRAY, PT SITTING UP IN THE BED WATCHING TV, DENIES ANY NEEDS AT THIS, CALL FRANKS WITHIN REACH
[2024-01-21] MEDS ORDERED: APIXABAN BASE 5 MG TAB PO SCH (13:00)
[2024-01-21] MEDS ORDERED: PANTOPRAZOLE SODIUM Sesquihydr 40 MG/TAB PO SCH (13:00)
[2024-01-21] MEDS ORDERED: AZITHROMYCIN 500 MG in SODIUM CHLORIDE 0.9% 250 ML IV SCH (14:00)
--- NOTE | 2024-01-21 16:19 | NUR ---
SPOUSE AT BEDSIDE, PT DENIES ANY NEEDS AT THIS TIME, CALL FRANKS WITHIN REACH
[2024-01-21] MEDS ORDERED: dilTIAZem HCL 30 MG/TAB PO SCH (21:00)
--- NOTE | 2024-01-21 21:00 | NUR ---
PT RESTING NO DISTRESS NOTED ON ASSESSMENT. PT STATED FEELING ANXIOUS PROVIDED PRN XANAX. VS WNL ON NC 3L LUNGS CLEAR. NO SKIN ISSUES. SNACKS PROVIDED. IV FLUSHED WORKING PROPERLY. CALL LIGHT WITHIN REACH. PLAN OF CARE ONGOING.
[2024-01-22] VITALS (9 sets, daily range): BP systolic 93–115; BP diastolic 52–59
--- NOTE | 2024-01-22 | NUR ---
PT RESTING NO DISTRESS NOTED ON EXAM. REPORTS NO PAIN. CALL LIGHT WITHIN REACH. PLAN OF CARE ONGOING.
--- NOTE | 2024-01-22 05:00 | NUR ---
PT RESTING NO DISTRESS NOTED ON EXAM. NO PAIN REPORTED. CALL LIGHT WITHIN REACH. PLAN OF CARE ONGOING.
[2024-01-22 05:30] LABS: HEMATOCRIT 34.6 % (37.0-47.0); HEMOGLOBIN 12.1 g/dl (12.0-16.0); IMMATURE GRANULOCYTES 0.9 % (0.0-5.0); LYMPH% 3.6 % (15-41); MEAN CELL VOLUME 96.4 fL CALC (80.0-100.0); MEAN CORPUSCULAR HGB 33.7 pG CALC (26.0-32.0); MONO% 2.3 % (2-13); NEUT# 15.07 thou/uL (2.00-7.15); NEUT% 93.2 % (42-76); RED BLOOD COUNT 3.59 mill/uL (4.20-5.60); RED CELL DISTRI WIDTH 12.7 % (11.5-15.5)
[2024-01-22 05:35] LABS: ALBUMIN 3.2 g/dL (3.2-5.0); BILIRUBIN, TOTAL 0.2 mg/dL (0.02-1.3); CREATININE 0.5 mg/dL (0.5-1.0); MAGNESIUM 1.9 mg/dL (1.6-2.3); POTASSIUM 3.5 mmol/l (3.5-5.1); TOTAL PROTEIN 5.5 g/dL (6.3-8.2)
--- NOTE | 2024-01-22 07:39 | NUR ---
PATIENT SITTING UP IN BED FOR BREAKFAST. ASSESSMENT COMPLETED. PATIENT ALERT AND ORIENTED X 4. DENIES PAIN. LUNG WHEEZES (R)/DIMINISHED TO ASCULTATION. BREATHING EVEN AND UNLABORED ON 2L NC. PATIENT USES O2 AT HOME - 3L. BOWEL SOUNDS ACTIVE. STRONG PERIPHERAL/PEDAL PULSES. GENERALIZED BRUISING NOTED. 20 LAC FLUSHES AND DRAWS WELL. PATIENT REQUESTED XANANX AT 0900 BECAUSE IT "MAKES ME CALM AND WHEN I AM CALL I BREATHE BETTER". SAFETY MEASURES IN PLACE INCLUDING BED IN LOW POSITION AND CALL LIGHT RESTING NEXT TO R HAND. NO APPARENT DISTRESS NOTED. WILL CONTINUE WITH PLAN OF CARE. DRY COUGH NOTED.
--- NOTE | 2024-01-22 11:57 | NUR ---
CALL RECEIVED FROM ER REGARDING PATIENT BEING TACHY ON THE MONITOR. NOTED TO BE SITTING ON THE SIDE OF THE BED EATING LUNCH. PATIENT BECOMES TACHY WITH EXERTION.
--- NOTE | 2024-01-22 12:00 | NUR ---
ROUNDING COMPLETE. ASSESSMENT UNCHANGED. PATIENT APPEARS TO BE RESTING WITH EYES CLOSED. NO APPARENT DISTRESS NOTED. WILL CONTINUE WITH PLAN OF CARE.
--- NOTE | 2024-01-22 16:00 | NUR ---
PATIENT LYING IN BED. AT BEDSIDE. STATES SHE WILL LIKE HER BREATHING TX. WILL CONTACT RESPIRATORY. PATIENT DENIES ANY OTHER ISSUES OR CONCERNS. NO APPARENT DISTRESS NOTED. [facility] PLAN OF CARE.
[2024-01-22] MEDS ORDERED: methylPREDNISolone Sod Succ 40 MG/ML SDV IV SCH (18:00)
--- NOTE | 2024-01-22 20:00 | NUR ---
PT RESTING NO DISTRESS NOTED ON ASSESSMENT. VS WNL ON NC 3L WHICH IS HER HOME OXYGEN LEVEL. IV SITE FLUSHED WORKING PROPERLY. CALL LIGHT WITHIN REACH. PLAN OF CARE ONGOING.
--- NOTE | 2024-01-23 | NUR ---
PT SLEEPING NO DISTRESS NOTED BREATHING EVENLY. CALL LIGHT WITHIN REACH. PLAN OF CARE ONGOING.
[2024-01-23 03:52] VITALS: BP 106/62
--- NOTE | 2024-01-23 04:20 | NUR ---
PT RESTING NO DISTRESS NOTED ON EXAM REPORTS NO PAIN. CALL LIGHT WITHIN REACH. PLAN OF CARE ONGOING.
[2024-01-23 05:43] LABS: HEMATOCRIT 36.6 % (37.0-47.0); HEMOGLOBIN 12.5 g/dl (12.0-16.0); IMMATURE GRANULOCYTES 0.6 % (0.0-5.0); MEAN CELL VOLUME 96.8 fL CALC (80.0-100.0); MEAN CORPUSCULAR HGB 33.1 pG CALC (26.0-32.0); MEAN CORPUSCULAR HGB CONC 34.2 g/dL CAL (32.0-36.0); MONO% 3.5 % (2-13); NEUT# 13.08 thou/uL (2.00-7.15); NEUT% 89.9 % (42-76); RED BLOOD COUNT 3.78 mill/uL (4.20-5.60); RED CELL DISTRI WIDTH 12.9 % (11.5-15.5)
[2024-01-23 06:22] LABS: ALBUMIN 3.2 g/dL (3.2-5.0); BILIRUBIN, TOTAL 0.1 mg/dL (0.02-1.3); CREATININE 0.5 mg/dL (0.5-1.0); MAGNESIUM 2.1 mg/dL (1.6-2.3); POTASSIUM 3.7 mmol/l (3.5-5.1); TOTAL PROTEIN 5.5 g/dL (6.3-8.2)
--- NOTE | 2024-01-23 06:40 | NUR ---
REPORT GIVEN BY LIANNA. PATIENT RESTING IN BED WATCHING TV. RESP EVEN AND UNLABORED, 3L O2 VIA NC. EXPIRATORY WHEEZING NOTED. FALL PRECAUTIONS IN PLACE. NO S/S OF DISTRESS NOTED. FALL AND SAFTEY PRECAUTION IN PLACE. PATIENT INFORMED TO CALL WITH ANY QUESTIONS OR CONCERNS.
[2024-01-23 07:36] VITALS: BP 119/70
--- NOTE | 2024-01-23 09:27 | NUR ---
MORNING MED PASSED DONE. C/O ANX MEDICATED PER MD ORDERS
[2024-01-23 10:35] VITALS: BP 103/64
[2024-01-23 15:59] VITALS: BP 95/61
[2024-01-23 19:00] VITALS: BP 105/56
[2024-01-23 19:40] VITALS: BP 105/56
--- NOTE | 2024-01-23 22:25 | NUR ---
PT IN BED WATCHING TV, NO S/S OF DISTRESS NOTED. DENIES PAIN OR DISCOMFERT, CALL LIGHT IN REACH AND BED IN LOWEST POSITION.
[2024-01-24] VITALS (9 sets, daily range): BP systolic 105–149; BP diastolic 52–80
--- NOTE | 2024-01-24 12:00 | NUR ---
SETUP ASSISTANCE PROVIDED WTIH LUNCH TRAY, PT VERBALIZES NO NEEDS AT THIS TIME, CALL FRANKS WITHIN REACH
[2024-01-24] MEDS ORDERED: methylPREDNISolone Sod Succ 40 MG/ML SDV IV SCH (14:00)
--- NOTE | 2024-01-24 15:23 | NUR ---
PT SITTING UP IN THE BED WATCHING TV, PT DENIES BEING MORE SHORT OF BREATH THEN HER USUAL, PT DENIES ANY NEEDS AT THIS TIME, CALL FRANKS WITHIN REACH
[2024-01-24] MEDS ORDERED: ALPRAZolam 0.5 MG/TAB PO PRN (15:55)
--- NOTE | 2024-01-24 17:45 | NUR ---
FAMILY AT BEDSIDE, PT VERBALIZES NO COMPLAINTS AT THIS TIME
[2024-01-24] MEDS ORDERED: LEVALBUTEROL HCL 1.25 MG/3 ML VIAL NEB SCH (19:00)
[2024-01-25] VITALS (9 sets, daily range): BP systolic 106–156; BP diastolic 58–80
--- NOTE | 2024-01-25 | NUR ---
RESTING IN BED, ALERT ORIENTED. NO C/O PAIN OR DISCOMFORT. CALL LIGHT IN REACH. MEDICATED WITH XANAX PER REQUEST.
--- NOTE | 2024-01-25 04:00 | NUR ---
DENIES NEEDS CURRENTLY. STILL HAS NONPRODUCTIVE COUGH. LUNGS COURSE. CALL LIGHT IN REACH
[2024-01-25 04:59] LABS: ALBUMIN 3.3 g/dL (3.2-5.0); BILIRUBIN, TOTAL 0.2 mg/dL (0.02-1.3); CREATININE 0.5 mg/dL (0.5-1.0); MAGNESIUM 2.2 mg/dL (1.6-2.3); POTASSIUM 4.1 mmol/l (3.5-5.1); TOTAL PROTEIN 5.6 g/dL (6.3-8.2)
--- NOTE | 2024-01-25 07:25 | NUR ---
PT SITTING UP IN BED WATCHING TV, PT VERBALIZES NO COMPLAINTS AT THIS TIME, PT A&O X3, PUPILS PERRL, NORMAL S1 S2 HEART SOUNDS, LUNGS SOUNDS DIMINISHED WITH WHEEZES, ABD SOFT WITH ACTIVE BOWEL SOUNDS, 20G LAC IV SL, STRONG RADIAL AND PEDAL PULSES, SAFETY MEASURES REINFORCED, CALL FRANKS WITHIN REACH
--- NOTE | 2024-01-25 08:54 | NUR ---
DR QUIROGA AT BEDSIDE DISCUSSING PLAN OF CARE
[2024-01-25] MEDS ORDERED: SODIUM CHLORIDE 0.45% 1,000 ML IV PRN (09:40)
--- NOTE | 2024-01-25 12:05 | NUR ---
PT SITTING UP EATING LUNCH, TOLERATING WELL, VERBALIZES NO COMPLAINTS, CALL FRANKS WITHIN REACH
--- NOTE | 2024-01-25 13:30 | NUR ---
PT'S DAUGHTER AT BEDSIDE VISITING, PT VERBALIZED NO NEEDS AT THIS TIME
--- NOTE | 2024-01-25 16:45 | NUR ---
PT SITTING UP IN BED WATCHING TV, NO DISTRESS NOTED, CALL FRANKS WITHIN REACH
--- NOTE | 2024-01-25 20:08 | NUR ---
recieve report from the off going nurse. pt is A&Ox4 able to make her needed known. pt denies pain. call light and personal item with reach. plan of care is ongoing.
[2024-01-26] VITALS: BP 119/59
--- NOTE | 2024-01-26 01:49 | NUR ---
Pt is resting with eyes close. pt vvs and deines pain. meds was given per aug order. educated pt on plan care. bed is at it lowest level, call light and personal item with reach. plan of care is ongoing.
[2024-01-26 04:09] VITALS: BP 113/58
[2024-01-26 05:03] VITALS: BP 113/58
[2024-01-26 05:29] LABS: BILIRUBIN, TOTAL 0.2 mg/dL (0.02-1.3); CREATININE 0.4 mg/dL (0.5-1.0); MAGNESIUM 2.2 mg/dL (1.6-2.3); POTASSIUM 4.4 mmol/l (3.5-5.1); TOTAL PROTEIN 5.2 g/dL (6.3-8.2)
[2024-01-26 07:15] VITALS: BP 156/73
--- NOTE | 2024-01-26 07:15 | NUR ---
PT SITTING UP IN BED WATCHING TV, A&O X 3, PUPILS PERRL, BREATHING EVEN AND UNLABORED, LUNG SOUNDS DIMINISHED, ABD SOFT WITH ACTIVE BOWEL SOUNDS, STRONG RADIAL AND PEDAL PULSES, 20G LAC SL, SAFETY MEASURES REINFORCED, CALL FRANKS WITHIN REACH
--- NOTE | 2024-01-26 07:45 | NUR ---
DR QUIROGA AND KARL BARBA AT BEDSIDE DISCUSSING PLAN OF CARE
[2024-01-26] MEDS ORDERED: XANAX0.25 MG PO (09:08)
[2024-01-26 09:35] VITALS: BP 156/73
--- NOTE | 2024-01-26 09:35 | NUR ---
PT GIVEN AM MEDS IV FLUSHED AT THIS TIME, IV LEAKING AROUND INSERTION SITE, IV REMOVED, PT REQUESTED NOT TO HAVE ANOTHER IV START BEING SHE WAS BEING DISCHARGED
--- NOTE | 2024-01-26 11:55 | NUR ---
PT SITTING UP IN THE BED EATING LUNCH, NO SIGNS OF DISTRESS, CALL FRANKS WITHIN REACH
--- NOTE | 2024-01-26 14:19 | NUR ---
PT SITTING UP IN THE BED WATCHING TV, PT DENIES ANY COMPLAINTS AT THIS TIME, CALL FRANKS WITHIN REACH
--- NOTE | 2024-01-26 15:05 | NUR ---
Discharge instructions given. Patient verbalizes understanding of same. Discharged in stable condition via Wheelchair to Home with spouse. All belongings sent with pt.
== END 2024-01-26 15:06 | disposition home or self-care (01) | DRG 191 ==
LOC: ED 12:32 → ED-I 12:59 → ED 12:59 → ED-I 12:59 → MS2 14:39 → ED 14:39 → MS2 01-22 17:55
PROVIDERS: Family Medicine; Nurse Practitioner Family; ADMIT Internal Medicine; ATTEND Internal Medicine
DX: J44.1 Chronic obstructive pulmonary disease with (acute) exacerbation (principal); J96.11 Chronic respiratory failure with hypoxia; J43.9 Emphysema, unspecified; I48.0 Paroxysmal atrial fibrillation; F41.9 Anxiety disorder, unspecified; Z79.01 Long term (current) use of anticoagulants; Z99.81 Dependence on supplemental oxygen; Z87.891 Personal history of nicotine dependence; Z20.822 Contact with and (suspected) exposure to COVID-19
CPT/HCPCS: J1650

== ENCOUNTER 2024-03-08 10:17 | Observation (INO) | payer OTHER ==
[~2024-03-08] VITALS: Ht 160 cm; Wt 39.8 kg
[2024-03-08] VITALS (16 sets, daily range): BP systolic 77–117; BP diastolic 45–72
[~2024-03-08 10:17] MED LIST changes: +XANAX0.25 MG PO
[2024-03-08] MEDS ORDERED: IPRATROPIUM-Albuterol 0.5MG-2.5MG/3 ML NEB ONE ×2 (10:20)
[2024-03-08] MEDS ORDERED: cefTRIAXone SODIUM 2 GM in SODIUM CHLORIDE 0.9% 100 ML IV ONE (10:25)
[2024-03-08] MEDS ORDERED: AZITHROMYCIN 500 MG in SODIUM CHLORIDE 0.9% 250 ML IV ONE (10:25)
[2024-03-08] MEDS ORDERED: methylPREDNISolone SODIUM SUCC 125 MG/2 ML SDV IV ONE (10:25)
[2024-03-08 10:44] LABS: BASO% 0.4 % (0-3); EOS% 1.5 % (0-8); HEMATOCRIT 41.1 % (37.0-47.0); HEMOGLOBIN 13.8 g/dl (12.0-16.0); IMMATURE GRANULOCYTES 0.4 % (0.0-5.0); LYMPH% 16.8 % (15-41); MEAN CELL VOLUME 96.9 fL CALC (80.0-100.0); MEAN CORPUSCULAR HGB 32.5 pG CALC (26.0-32.0); MEAN CORPUSCULAR HGB CONC 33.6 g/dL CAL (32.0-36.0); MONO% 9.1 % (2-13); NEUT# 5.22 thou/uL (2.00-7.15); NEUT% 71.8 % (42-76); RED BLOOD COUNT 4.24 mill/uL (4.20-5.60); RED CELL DISTRI WIDTH 12.8 % (11.5-15.5)
[2024-03-08 10:58] LABS: ANION GAP 7 (6-22 (CALC)); BUN 5 mg/dL (8-23); BUN/CREATININE RATIO 13 (12-20 (CALC)); CARBON DIOXIDE 30 mmol/l (22-30); CHLORIDE 99 mmol/l (95-108); CREATININE 0.4 mg/dL (0.5-1.0); ESTIMATED GFR 112 ML/MIN (>=90 (CALC)); POTASSIUM 4.5 mmol/l (3.5-5.1); SGOT/AST 27 u/l (9-36); SODIUM 131 mmol/l (137-146)
[2024-03-08 11:20] LABS: ALBUMIN 4.1 g/dL (3.2-5.0); ALKALINE PHOSPHATASE 74 u/l (38-126); BILIRUBIN, TOTAL 0.3 mg/dL (0.02-1.3); TOTAL PROTEIN 7.2 g/dL (6.3-8.2)
[2024-03-08] MEDS ORDERED: SODIUM CHLORIDE 0.9% 1,000 ML IV ONE (12:20)
[2024-03-08] MEDS ORDERED: MAGNESIUM HYDROXIDE 30 ML UDC PO PRN (13:00)
[2024-03-08] MEDS ORDERED: ACETAMINOPHEN 325 MG/TAB PO PRN (13:00)
[2024-03-08] MEDS ORDERED: ALBUTEROL SULFATE 8 GM INH IN PRN (15:05)
[2024-03-08] MEDS ORDERED: DILTIAZEM120 M1 PO (15:05)
[2024-03-08] MEDS ORDERED: ALPRAZolam 0.25 MG PO PRN (15:15)
[2024-03-08] MEDS ORDERED: APIXABAN BASE 5 MG TAB PO SCH (21:00)
[2024-03-08] MEDS ORDERED: methylPREDNISolone Sod Succ 40 MG/ML SDV IV SCH (21:00)
[2024-03-09] VITALS (8 sets, daily range): BP systolic 87–115; BP diastolic 45–65
[2024-03-09 05:03] LABS: IMMATURE GRANULOCYTES 0.3 % (0.0-5.0); LYMPH% 7.7 % (15-41); MEAN CORPUSCULAR HGB 33.1 pG CALC (26.0-32.0); MEAN CORPUSCULAR HGB CONC 34.5 g/dL CAL (32.0-36.0); MONO% 2.5 % (2-13); NEUT# 5.45 thou/uL (2.00-7.15); NEUT% 89.5 % (42-76); RED BLOOD COUNT 3.53 mill/uL (4.20-5.60); RED CELL DISTRI WIDTH 12.6 % (11.5-15.5)
[2024-03-09 05:13] LABS: CREATININE 0.4 mg/dL (0.5-1.0); POTASSIUM 3.8 mmol/l (3.5-5.1)
[2024-03-09 05:17] LABS: HEMATOCRIT 33.9 % (37.0-47.0); HEMOGLOBIN 11.7 g/dl (12.0-16.0)
[2024-03-09 05:20] LABS: ALBUMIN 2.8 g/dL (3.2-5.0); TOTAL PROTEIN 5.1 g/dL (6.3-8.2)
[2024-03-09] MEDS ORDERED: PANTOPRAZOLE SODIUM Sesquihydr 40 MG/TAB PO SCH (09:00)
[2024-03-09] MEDS ORDERED: dilTIAZem HCl EXTENDED RELEASE 120 MG CAP PO SCH (09:00)
[2024-03-09] MEDS ORDERED: AZITHROMYCIN 500 MG in SODIUM CHLORIDE 0.9% 250 ML IV SCH (11:00)
[2024-03-09] MEDS ORDERED: methylPREDNISolone Sod Succ 40 MG/ML SDV IV SCH (14:00)
[2024-03-10] VITALS (9 sets, daily range): BP systolic 88–112; BP diastolic 46–56
[2024-03-10 05:42] LABS: HEMATOCRIT 33.2 % (37.0-47.0); HEMOGLOBIN 11.1 g/dl (12.0-16.0); IMMATURE GRANULOCYTES 0.2 % (0.0-5.0); LYMPH% 3.4 % (15-41); MEAN CELL VOLUME 97.6 fL CALC (80.0-100.0); MEAN CORPUSCULAR HGB 32.6 pG CALC (26.0-32.0); MEAN CORPUSCULAR HGB CONC 33.4 g/dL CAL (32.0-36.0); MONO% 1.3 % (2-13); NEUT# 19.05 thou/uL (2.00-7.15); NEUT% 95.1 % (42-76); RED BLOOD COUNT 3.4 mill/uL (4.20-5.60)
[2024-03-10 06:00] LABS: ALBUMIN 2.9 g/dL (3.2-5.0); BILIRUBIN, TOTAL 0.1 mg/dL (0.02-1.3); CREATININE 0.4 mg/dL (0.5-1.0); MAGNESIUM 2.1 mg/dL (1.6-2.3); POTASSIUM 3.7 mmol/l (3.5-5.1); TOTAL PROTEIN 5.2 g/dL (6.3-8.2)
[2024-03-10] MEDS ORDERED: guaiFENesin-CODEINE 200-20 MG/10 ML UDC PO PRN (11:40)
[2024-03-11 03:38] VITALS: BP 89/39
[2024-03-11 04:57] LABS: BASO% 0.1 % (0-3); HEMATOCRIT 31.8 % (37.0-47.0); HEMOGLOBIN 10.8 g/dl (12.0-16.0); IMMATURE GRANULOCYTES 0.3 % (0.0-5.0); LYMPH% 3.6 % (15-41); MEAN CELL VOLUME 97.8 fL CALC (80.0-100.0); MEAN CORPUSCULAR HGB 33.2 pG CALC (26.0-32.0); MONO% 1.4 % (2-13); NEUT# 18.03 thou/uL (2.00-7.15); NEUT% 94.6 % (42-76); RED BLOOD COUNT 3.25 mill/uL (4.20-5.60); RED CELL DISTRI WIDTH 12.9 % (11.5-15.5)
[2024-03-11 05:09] LABS: ALBUMIN 2.8 g/dL (3.2-5.0); CREATININE 0.4 mg/dL (0.5-1.0); POTASSIUM 3.4 mmol/l (3.5-5.1)
[2024-03-11 06:20] VITALS: BP 99/56
[2024-03-11] MEDS ORDERED: POTASSIUM CHLORIDE 20 MEQ/TAB PO SCH (10:00)
[2024-03-11 11:13] VITALS: BP 112/41
[2024-03-11 15:16] VITALS: BP 101/50
[2024-03-11 18:31] VITALS: BP 108/58
[2024-03-11 18:41] VITALS: BP 108/58
[2024-03-11] MEDS ORDERED: methylPREDNISolone Sod Succ 40 MG/ML SDV IV SCH (21:00)
[2024-03-12] VITALS (8 sets, daily range): BP systolic 103–114; BP diastolic 59–70
[2024-03-12 05:23] LABS: HEMATOCRIT 35.9 % (37.0-47.0); MEAN CELL VOLUME 97.6 fL CALC (80.0-100.0); MEAN CORPUSCULAR HGB 32.6 pG CALC (26.0-32.0); MEAN CORPUSCULAR HGB CONC 33.4 g/dL CAL (32.0-36.0); RED BLOOD COUNT 3.68 mill/uL (4.20-5.60); RED CELL DISTRI WIDTH 12.7 % (11.5-15.5)
[2024-03-12 05:42] LABS: CREATININE 0.4 mg/dL (0.5-1.0); MAGNESIUM 2.1 mg/dL (1.6-2.3); POTASSIUM 3.6 mmol/l (3.5-5.1); TOTAL PROTEIN 5.4 g/dL (6.3-8.2)
[2024-03-12 05:51] LABS: BILIRUBIN, TOTAL 0.1 mg/dL (0.02-1.3)
[2024-03-13 03:19] VITALS: BP 100/63
[2024-03-13 03:33] VITALS: BP 100/63
[2024-03-13 07:10] VITALS: BP 109/69
[2024-03-13 09:05] VITALS: BP 120/57
[2024-03-13 11:19] VITALS: BP 109/74
== END 2024-03-13 15:04 | disposition home or self-care (01) | DRG 178 ==
LOC: ED 10:17 → ED-I 12:00 → ED 12:23 → MS2 12:24
PROVIDERS: Family Medicine; Nurse Practitioner Family; ADMIT Internal Medicine; ATTEND Internal Medicine
DX: U07.1 COVID-19 (principal); J44.1 Chronic obstructive pulmonary disease with (acute) exacerbation; J96.11 Chronic respiratory failure with hypoxia; L03.115 Cellulitis of right lower limb; I48.0 Paroxysmal atrial fibrillation; E87.6 Hypokalemia; F41.9 Anxiety disorder, unspecified; Z99.81 Dependence on supplemental oxygen; Z87.891 Personal history of nicotine dependence
CPT/HCPCS: G0378